=== PATIENT | male | born 1955 | race Caucasian/White ===

== ENCOUNTER 2017-01-13 13:42 | Emergency (ER) | payer OTHER ==
[~2017-01-13] VITALS: Ht 182.9 cm; Wt 72.5 kg
[~2017-01-13 13:42] MED LIST: ASAC800T PO; GABA100C4 PO; PANT40TA3 PO; PRED10 PO; PRED5TAB PO
[2017-01-13 13:53] VITALS: BP 119/75; PULSE 104; RESP 20; TEMP 97.8; O2SAT 95
[2017-01-13] MEDS ORDERED: SODIUM CHLOR 0.9% 1000 ML INJ 1,000 ML IV SCH (18:01)
--- NOTE | 2017-01-13 18:12 | PD ---
HPI Chief Complaint: Allergic/Adverse Reaction Time Seen by Provider: 18:01 Travel History International Travel<30 days: No Contact w/Intl Traveler<30days: No Traveled to known affect area: No History of Present Illness HPI 61-year-old male with history of ulcerative colitis, has been on long-term steroids for some time and recently has been having a taper of his steroids from 10 mg of prednisone daily to 5 mg in the last week and a half. He states that since his taper, he's been having more fatigue, loose stools, abdominal cramping pains which he states is intermittent in nature and can be up to a 5 out of 10, joint pains. He states that he thinks is related to the medication that is being cut down. He denies any fevers, vomiting, or any other symptoms. He has had similar symptoms in the past but they cut his steroids. Modifying Factors: None Associated Signs & Symptoms: Fatigue, diarrhea, abdominal cramps Risk Factors: Ulcerative colitis PFSH Past Medical History Cancer: No Cardiovascular Problems: No Diabetes: No Diminished Hearing: No Endocrine: No Gastrointestinal Disorders: Yes (COLITIS, HEMORRHOIDS) Genitourinary: No Hepatitis: No Hiatal Hernia: No Immune Disorder: Yes (COLITIS) Musculoskeletal: Yes (ARTHRITIS, BACK PROBLEMS) Neurologic: No Psychiatric: No Reproductive: No Respiratory: No Thyroid Disease: No Past Surgical History AICD: No Body Medical Devices: L ANKLE SCREWS Joint Replacement: No Pacemaker: No Social History Alcohol Use: No Tobacco Use: No Substance Use: No Allergies-Medications (Allergen,Severity, Reaction): Coded Allergies: Penicillin (Verified Adverse Reaction, Unknown, SEVERE NAUSEA, 01/13/17) Reported Meds & Prescriptions Reported Meds & Active Scripts Active Prednisone 5 Mg Tab 5 Mg PO DIRECTED Take 2 tabs (10mg) for 7 days Take 1 tab (5mg) for 7 days Take 1/2 tab (2.5mg) for 7 days Asacol HD (Mesalamine) 800 Mg Tab 1,600 Mg PO TID Swallow whole. Take on an empty stomach. Review of Systems Except as stated in HPI: all other systems reviewed are Neg Physical Exam Narrative GENERAL: Elderly white male patient currently not in acute distress. Awake and oriented 3. SKIN: Focused skin assessment warm/dry. HEAD: Atraumatic. Normocephalic. EYES: Pupils equal and round. No scleral icterus. No injection or drainage. ENT: No nasal bleeding or discharge. Mucous membranes pink and moist. NECK: Trachea midline. No JVD. CARDIOVASCULAR: Regular rate and rhythm. No murmur appreciated. RESPIRATORY: No accessory muscle use. Clear to auscultation. Breath sounds equal bilaterally. GASTROINTESTINAL: Abdomen soft, mild left lower quadrant tenderness without guarding or rebound, nondistended. Hepatic and splenic margins not palpable. MUSCULOSKELETAL: No obvious deformities. No clubbing. No cyanosis. No edema. NEUROLOGICAL: Awake and alert. No obvious cranial nerve deficits. Motor grossly within normal limits. Normal speech. PSYCHIATRIC: Appropriate mood and affect; insight and judgment normal. Data Data Last Documented VS Vital Signs Date Time Temp Pulse Resp B/P Pulse Ox O2 Delivery O2 Flow Rate FiO2 01/13/17 19:08 83 17 138/80 99 Room Air 01/13/17 13:53 97.8 Orders Complete Blood Count With Diff (01/13/17 18:01) Comprehensive Metabolic Panel (01/13/17 18:01) Lipase (01/13/17 18:01) Urinalysis - C+S If Indicated (01/13/17 18:01) Abdomen, Flat & Upright (01/13/17 ) Iv Access Insert/Monitor (01/13/17 18:01) Ecg Monitoring (01/13/17 18:01) Oximetry (01/13/17 18:01) Sodium Chlor 0.9% 1000 Ml Inj (Ns 1000 M (01/13/17 18:01) Sodium Chloride 0.9% Flush (Ns Flush) (01/13/17 18:15) Prednisone (Deltasone) (01/13/17 18:15) Labs Laboratory Tests Test 01/13/17 18:14 White Blood Count 15.3 TH/MM3 Red Blood Count 4.84 MIL/MM3 Hemoglobin 11.8 GM/DL Hematocrit 37.3 % Mean Corpuscular Volume 76.9 FL Mean Corpuscular Hemoglobin 24.4 PG Mean Corpuscular Hemoglobin 31.7 % Concent Red Cell Distribution Width 15.5 % Platelet Count 597 TH/MM3 Mean Platelet Volume 6.9 FL Neutrophils (%) (Auto) 73.7 % Lymphocytes (%) (Auto) 15.2 % Monocytes (%) (Auto) 9.6 % Eosinophils (%) (Auto) 0.7 % Basophils (%) (Auto) 0.8 % Neutrophils # (Auto) 11.2 TH/MM3 Lymphocytes # (Auto) 2.3 TH/MM3 Monocytes # (Auto) 1.5 TH/MM3 Eosinophils # (Auto) 0.1 TH/MM3 Basophils # (Auto) 0.1 TH/MM3 CBC Comment AUTO DIFF Sodium Level 137 MEQ/L Potassium Level 5.1 MEQ/L Chloride Level 100 MEQ/L Carbon Dioxide Level 29.0 MEQ/L Anion Gap 8 MEQ/L Blood Urea Nitrogen 8 MG/DL Creatinine 1.02 MG/DL Estimat Glomerular Filtration 74 ML/MIN Rate Random Glucose 87 MG/DL Calcium Level 9.3 MG/DL Total Bilirubin 0.4 MG/DL Aspartate Amino Transf 27 U/L (AST/SGOT) Alanine Aminotransferase 14 U/L (ALT/SGPT) Alkaline Phosphatase 73 U/L Total Protein 8.8 GM/DL Albumin 2.4 GM/DL Lipase 78 U/L MDM Medical Decision Making Medical Screen Exam Complete: Yes Emergency Medical Condition: Yes Medical Record Reviewed: Yes Interpretation(s) Laboratory Tests Test 01/13/17 18:14 White Blood Count 15.3 TH/MM3 (4.0-11.0) Hemoglobin 11.8 GM/DL (13.0-17.0) Hematocrit 37.3 % (39.0-51.0) Mean Corpuscular Volume 76.9 FL (80.0-100.0) Mean Corpuscular Hemoglobin 24.4 PG (27.0-34.0) Mean Corpuscular Hemoglobin 31.7 % Concent (32.0-36.0) Platelet Count 597 TH/MM3 (150-450) Mean Platelet Volume 6.9 FL (7.0-11.0) Neutrophils (%) (Auto) 73.7 % (16.0-70.0) Monocytes (%) (Auto) 9.6 % (0.0-8.0) Neutrophils # (Auto) 11.2 TH/MM3 (1.8-7.7) Monocytes # (Auto) 1.5 TH/MM3 (0-0.9) Estimat Glomerular Filtration 74 ML/MIN (>89) Rate Total Protein 8.8 GM/DL (6.4-8.2) Albumin 2.4 GM/DL (3.4-5.0) Differential Diagnosis Fatigue, abdominal cramping pains intermittently, diarrheaulcerative colitis exacerbation versus stereo withdrawal versus gastroenteritis versus dehydration versus metabolic issues Narrative Course Lab work and x-ray sent. Physician Communication Physician Communication Case is signed out to Dr. Arreola awaiting lab work and x-ray. Disposition based on workup. Diagnosis Primary Impression: Ulcerative colitis Condition: Stable Shaq Gann MD Jan 13, 2017 18:12
[2017-01-13] MEDS ORDERED: SODIUM CHLORIDE 0.9% FLUSH 10 ML FLUSH IV FLUSH PRN (18:15)
[2017-01-13] MEDS ORDERED: predniSONE 50 MG TAB PO ONE (18:15)
[2017-01-13 18:17] VITALS: O2SAT 96
[2017-01-13 18:43] LABS: AUTOMATED NEUTROPHIL # 11.2 TH/MM3 (1.8-7.7); BASOPHIL # 0.1 TH/MM3 (0-0.2); BASOPHIL % 0.8 % (0.0-2.0); EOSINOPHIL # 0.1 TH/MM3 (0-0.4); EOSINOPHIL % 0.7 % (0.0-4.0); HEMATOCRIT 37.3 % (39.0-51.0); LYMPH % 15.2 % (9.0-44.0); LYMPHOCYTE # 2.3 TH/MM3 (1.0-4.8); MEAN CELL VOLUME 76.9 FL (80.0-100.0); MEAN CORPUSCULAR HEMOGLOBIN 24.4 PG (27.0-34.0); MEAN CORPUSCULAR HGB CONC 31.7 % (32.0-36.0); MONO % 9.6 % (0.0-8.0); NEUT % 73.7 % (16.0-70.0); PLATELET COUNT 597 TH/MM3 (150-450); RED BLOOD COUNT 4.84 MIL/MM3 (4.50-5.90); RED CELL DISTRIBUTION WIDTH 15.5 % (11.6-17.2); WHITE BLOOD COUNT 15.3 TH/MM3 (4.0-11.0)
[2017-01-13 18:54] LABS: HEMO FLAGS AUTO DIFF
[2017-01-13 19:04] LABS: ANION GAP 8 MEQ/L (5-15); AST (GOT) 27 U/L (15-37); BLOOD UREA NITROGEN 8 MG/DL (7-18); CHLORIDE 100 MEQ/L (98-107); GLOMERULAR FILTRATION RATE 74 ML/MIN (>89); SODIUM (NA) 137 MEQ/L (136-145)
[2017-01-13 19:07] LABS: ALKALINE PHOSPHATASE 73 U/L (45-117); ALT (GPT) 14 U/L (12-78); POTASSIUM 5.1 MEQ/L (3.5-5.1); TOTAL BILIRUBIN ADULT 0.4 MG/DL (0.2-1.0)
[2017-01-13 19:08] VITALS: BP 138/80; PULSE 83; RESP 17; O2SAT 99
[2017-01-13 19:18] LABS: PLATELET ESTIMATE SMEAR HIGH (NORMAL); PLATELET MORPHOLOGY NORMAL (NORMAL)
[2017-01-13 19:19] LABS: SCAN/DIFF AUTO DIFF CONFIRMED
--- NOTE | 2017-01-13 19:37 | RADRPT ---
EXAM DATE/TIME: 01/13/2017 18:42 [facility] COMPARISON: No previous studies available for comparison. INDICATIONS : Abdominal pain. MEDICAL HISTORY : Ulcerative colitis. SURGICAL HISTORY : None. ENCOUNTER: Initial ACUITY: 1 day PAIN SCORE: 5/10 LOCATION: Bilateral abdomen. FINDINGS: Supine and upright views of the abdomen were performed. The abdominal bowel gas pattern is normal. No air fluid levels are seen. Moderate thoracolumbar scoliosis CONCLUSION: 1. No acute findings. Scoliosis. Armaan Fagan MD on January 13, 2017 at 19:34 Board Certified Radiologist. This report was verified electronically.
[2017-01-13 20:27] LABS: BACTERIA, URINE RARE /hpf; BLOOD, URINE SMALL (NEG); COMMENT (UR) CULTURE INDICATED; CULTURE IF INDICATED CULTURE INDICATED; GLUCOSE,URINE NEG (NEG); HYALINE CAST, URINE 1 /lpf (RARE); KETONE, URINE NEG (NEG); MUCUS URINE MOD /lpf (OCC); NITRITE,URINE NEG (NEG); PH, URINE 5.5 (5.0-8.5); SQUAMOUS EPITHELIAL CELL URINE <1 /hpf (0-5); URINE COLOR YELLOW (YELLW/STRAW)
[2017-01-13] MEDS ORDERED: PRED10 PO (20:38)
--- NOTE | 2017-01-13 20:38 | PD ---
Data Data Last Documented VS Vital Signs Date Time Temp Pulse Resp B/P Pulse Ox O2 Delivery O2 Flow Rate FiO2 01/13/17 19:08 83 17 138/80 99 Room Air 01/13/17 13:53 97.8 Orders Complete Blood Count With Diff (01/13/17 18:01) Comprehensive Metabolic Panel (01/13/17 18:01) Lipase (01/13/17 18:01) Urinalysis - C+S If Indicated (01/13/17 18:01) Abdomen, Flat & Upright (01/13/17 ) Iv Access Insert/Monitor (01/13/17 18:01) Ecg Monitoring (01/13/17 18:01) Oximetry (01/13/17 18:01) Sodium Chlor 0.9% 1000 Ml Inj (Ns 1000 M (01/13/17 18:01) Sodium Chloride 0.9% Flush (Ns Flush) (01/13/17 18:15) Prednisone (Deltasone) (01/13/17 18:15) Labs Laboratory Tests Test 01/13/17 18:14 White Blood Count 15.3 TH/MM3 Red Blood Count 4.84 MIL/MM3 Hemoglobin 11.8 GM/DL Hematocrit 37.3 % Mean Corpuscular Volume 76.9 FL Mean Corpuscular Hemoglobin 24.4 PG Mean Corpuscular Hemoglobin 31.7 % Concent Red Cell Distribution Width 15.5 % Platelet Count 597 TH/MM3 Mean Platelet Volume 6.9 FL Neutrophils (%) (Auto) 73.7 % Lymphocytes (%) (Auto) 15.2 % Monocytes (%) (Auto) 9.6 % Eosinophils (%) (Auto) 0.7 % Basophils (%) (Auto) 0.8 % Neutrophils # (Auto) 11.2 TH/MM3 Lymphocytes # (Auto) 2.3 TH/MM3 Monocytes # (Auto) 1.5 TH/MM3 Eosinophils # (Auto) 0.1 TH/MM3 Basophils # (Auto) 0.1 TH/MM3 CBC Comment AUTO DIFF Differential Comment AUTO DIFF CONFIRMED Platelet Estimate HIGH Platelet Morphology Comment NORMAL Red Cell Morphology Comment NORMAL Sodium Level 137 MEQ/L Potassium Level 5.1 MEQ/L Chloride Level 100 MEQ/L Carbon Dioxide Level 29.0 MEQ/L Anion Gap 8 MEQ/L Blood Urea Nitrogen 8 MG/DL Creatinine 1.02 MG/DL Estimat Glomerular Filtration 74 ML/MIN Rate Random Glucose 87 MG/DL Calcium Level 9.3 MG/DL Total Bilirubin 0.4 MG/DL Aspartate Amino Transf 27 U/L (AST/SGOT) Alanine Aminotransferase 14 U/L (ALT/SGPT) Alkaline Phosphatase 73 U/L Total Protein 8.8 GM/DL Albumin 2.4 GM/DL Lipase 78 U/L [facility] [place] Medical Record Reviewed: Yes Supervised Visit with FLORENCIO: No Narrative Course CBC & BMP Diagram 01/13/17 18:14 LFTs normal Lipase normal Please refer to outgoing provider's note. Pt is ready for discharge. Diagnosis Primary Impression: Ulcerative colitis Qualified Code: K51.919 - Ulcerative colitis with complication, unspecified location Referrals: Landon Fuentes MD 2 days Additional Instruction: You have a choice when it comes to health care, and we are glad that you chose [facility]. Hopefully, we have met your expectations on today's visit. You are welcome to return to [facility] at any time, as we are committed to meeting the health care needs of our community. Med/Other Pt SpecificInfo: Prescription(s) given Scripts Prednisone 10 Mg Tab10 Mg PO DAILY 7 Days Ref 0 Prov:Yang Arreola MD 01/13/17 Disposition: 01 DISCHARGE HOME Condition: Stable Yang Arreola MD Jan 13, 2017 20:38
[2017-01-13 20:58] VITALS: BP 130/80
[2017-01-15] MEDS ORDERED: IMUR50TA PO (09:40)
[2017-01-29] MEDS ORDERED: ERYTOIN10 LEFT EYE (12:03)
[2017-01-29] MEDS ORDERED: ASAC800T PO (12:04)
[2017-02-27] MEDS ORDERED: DICY20TA10 PO (11:02)
== END 2017-01-13 21:00 | disposition home or self-care (01) ==
LOC: NEPC 13:42
DX: K51.90 Ulcerative colitis, unspecified, without complications (principal); Z79.52 Long term (current) use of systemic steroids
CPT/HCPCS: 74020; 80053; 81001; 83690; 85025; 87086; 96360; 99284; J7030; J7512

== ENCOUNTER → 2017-01-23 | Outpatient (CLI) | payer OTHER ==
[~2017-01-23] MED LIST changes: +DICY20TA10 PO; +ERYTOIN10 LEFT EYE; -GABA100C4 PO; +IMUR50TA PO; -PANT40TA3 PO
[2017-01-23 15:06] LABS: AUTOMATED NEUTROPHIL # 12.4 TH/MM3 (1.8-7.7); BASOPHIL # 0.1 TH/MM3 (0-0.2); BASOPHIL % 0.8 % (0.0-2.0); EOSINOPHIL # 0.2 TH/MM3 (0-0.4); EOSINOPHIL % 1.4 % (0.0-4.0); HEMATOCRIT 34.8 % (39.0-51.0); LYMPH % 12.9 % (9.0-44.0); LYMPHOCYTE # 2.1 TH/MM3 (1.0-4.8); MEAN CELL VOLUME 75.8 FL (80.0-100.0); MEAN CORPUSCULAR HEMOGLOBIN 24.7 PG (27.0-34.0); MEAN CORPUSCULAR HGB CONC 32.5 % (32.0-36.0); MONO % 7.7 % (0.0-8.0); NEUT % 77.2 % (16.0-70.0); PLATELET COUNT 560 TH/MM3 (150-450); RED BLOOD COUNT 4.59 MIL/MM3 (4.50-5.90); RED CELL DISTRIBUTION WIDTH 15.6 % (11.6-17.2); WHITE BLOOD COUNT 16.1 TH/MM3 (4.0-11.0)
[2017-01-23 15:12] LABS: HEMO FLAGS AUTO DIFF
[2017-01-23 16:25] LABS: BANDS 13 % (0-6); BASOPHILS 1 % (0-2); EOSINOPHILS 1 % (0-4); NEUTROPHIL # MANUAL DIFF 12.7 TH/MM3 (1.8-7.7); PLATELET ESTIMATE SMEAR HIGH (NORMAL); PLATELET MORPHOLOGY NORMAL (NORMAL); POLYS (SEG NEUTROPHILS) 66 % (16-70); SCAN/DIFF FINAL DIFF MANUAL; WBC DIFF SAMPLE 100
== END ==
LOC: CLAB 14:47
PROVIDERS: ATTEND Family Medicine
DX: K51.90 Ulcerative colitis, unspecified, without complications (principal)
CPT/HCPCS: 36415; 85007; 85027

== ENCOUNTER → 2017-01-28 | Outpatient (CLI) | payer OTHER ==
[2017-01-28 14:25] LABS: AUTOMATED NEUTROPHIL # 10.6 TH/MM3 (1.8-7.7); BASOPHIL # 0.1 TH/MM3 (0-0.2); BASOPHIL % 0.8 % (0.0-2.0); EOSINOPHIL # 0.2 TH/MM3 (0-0.4); EOSINOPHIL % 1.8 % (0.0-4.0); HEMATOCRIT 32.1 % (39.0-51.0); LYMPH % 12.5 % (9.0-44.0); LYMPHOCYTE # 1.7 TH/MM3 (1.0-4.8); MEAN CELL VOLUME 77.6 FL (80.0-100.0); MEAN CORPUSCULAR HEMOGLOBIN 24.2 PG (27.0-34.0); MEAN CORPUSCULAR HGB CONC 31.2 % (32.0-36.0); MONO % 5.4 % (0.0-8.0); NEUT % 79.5 % (16.0-70.0); PLATELET COUNT 613 TH/MM3 (150-450); RED BLOOD COUNT 4.14 MIL/MM3 (4.50-5.90); RED CELL DISTRIBUTION WIDTH 15.6 % (11.6-17.2); WHITE BLOOD COUNT 13.4 TH/MM3 (4.0-11.0)
[2017-01-28 14:31] LABS: HEMO FLAGS AUTO DIFF
[2017-01-28 15:07] LABS: PLATELET ESTIMATE SMEAR HIGH (NORMAL); PLATELET MORPHOLOGY NORMAL (NORMAL)
[2017-01-28 15:08] LABS: SCAN/DIFF AUTO DIFF CONFIRMED
== END ==
LOC: CLAB 14:00
PROVIDERS: ATTEND Family Medicine
DX: K51.90 Ulcerative colitis, unspecified, without complications (principal)
CPT/HCPCS: 36415; 85025

== ENCOUNTER → 2017-02-05 | Outpatient (CLI) | payer OTHER ==
[~2017-02-05] MED LIST changes: -PRED10 PO; -PRED5TAB PO
[2017-02-05 15:25] LABS: AUTOMATED NEUTROPHIL # 6.7 TH/MM3 (1.8-7.7); BASOPHIL # 0.1 TH/MM3 (0-0.2); BASOPHIL % 0.7 % (0.0-2.0); EOSINOPHIL # 0.5 TH/MM3 (0-0.4); HEMATOCRIT 31.2 % (39.0-51.0); LYMPH % 16.3 % (9.0-44.0); LYMPHOCYTE # 1.5 TH/MM3 (1.0-4.8); MEAN CORPUSCULAR HEMOGLOBIN 24.8 PG (27.0-34.0); MEAN CORPUSCULAR HGB CONC 31.7 % (32.0-36.0); MONO % 6.2 % (0.0-8.0); NEUT % 71.8 % (16.0-70.0); PLATELET COUNT 693 TH/MM3 (150-450); RED BLOOD COUNT 3.99 MIL/MM3 (4.50-5.90); RED CELL DISTRIBUTION WIDTH 16.5 % (11.6-17.2); WHITE BLOOD COUNT 9.3 TH/MM3 (4.0-11.0)
[2017-02-05 15:26] LABS: HEMO FLAGS AUTO DIFF
[2017-02-05 15:59] LABS: OVALOCYTES 1+ (NORMAL); PLATELET ESTIMATE SMEAR HIGH (NORMAL); PLATELET MORPHOLOGY NORMAL (NORMAL); SCAN/DIFF AUTO DIFF CONFIRMED
== END ==
LOC: CLAB 14:36
PROVIDERS: ATTEND Nurse Practitioner Family
DX: K51.90 Ulcerative colitis, unspecified, without complications (principal)
CPT/HCPCS: 36415; 85025

== ENCOUNTER → 2017-02-05 | Outpatient (CLI) | payer OTHER ==
--- NOTE | 2017-02-05 17:45 | RADRPT ---
EXAM DATE/TIME: 02/05/2017 14:29 [facility] COMPARISON: No previous studies available for comparison. INDICATIONS : Has been hoarse and coughing up phlegm for one month, quit smoking 10 years ago, no thoracic surgery MEDICAL HISTORY : scoliosis SURGICAL HISTORY : None. ENCOUNTER: Initial ACUITY: 1 month PAIN SCORE: 0/10 LOCATION: Bilateral chest FINDINGS: PA and lateral views of the chest demonstrate the lungs to be symmetrically aerated without evidence of mass, infiltrate or effusion. Marked dextrorotoscoliosis of the dorsal spine with distortion of th e mediastinal contour. Heart size is normal. Osseous structures are otherwise intact. CONCLUSION: 1. Dextrorotoscoliosis of the dorsal spine. 2. No acute cardiopulmonary process. Efra Bradshaw MD on February 05, 2017 at 16:53 Board Certified Radiologist. This report was verified electronically.
== END ==
LOC: HRAD 14:14
PROVIDERS: ATTEND Nurse Practitioner Family
DX: R05 Cough (principal)
CPT/HCPCS: 71020

== ENCOUNTER → 2017-02-21 | Outpatient (CLI) | payer OTHER ==
[2017-02-21 14:33] LABS: AUTOMATED NEUTROPHIL # 8.5 TH/MM3 (1.8-7.7); BASOPHIL # 0.1 TH/MM3 (0-0.2); BASOPHIL % 0.9 % (0.0-2.0); EOSINOPHIL # 0.5 TH/MM3 (0-0.4); EOSINOPHIL % 4.3 % (0.0-4.0); HEMATOCRIT 32.6 % (39.0-51.0); LYMPH % 13.6 % (9.0-44.0); LYMPHOCYTE # 1.5 TH/MM3 (1.0-4.8); MEAN CELL VOLUME 78.9 FL (80.0-100.0); MEAN CORPUSCULAR HEMOGLOBIN 24.7 PG (27.0-34.0); MEAN CORPUSCULAR HGB CONC 31.4 % (32.0-36.0); MONO % 5.8 % (0.0-8.0); NEUT % 75.4 % (16.0-70.0); PLATELET COUNT 719 TH/MM3 (150-450); RED BLOOD COUNT 4.13 MIL/MM3 (4.50-5.90); RED CELL DISTRIBUTION WIDTH 20.4 % (11.6-17.2); WHITE BLOOD COUNT 11.2 TH/MM3 (4.0-11.0)
[2017-02-21 14:39] LABS: HEMO FLAGS AUTO DIFF
[2017-02-21 15:37] LABS: OVALOCYTES 1+ (NORMAL); PLATELET ESTIMATE SMEAR HIGH (NORMAL); PLATELET MORPHOLOGY NORMAL (NORMAL); SCAN/DIFF AUTO DIFF CONFIRMED
== END ==
LOC: CLAB 14:20
PROVIDERS: ATTEND Family Medicine
DX: K51.90 Ulcerative colitis, unspecified, without complications (principal)
CPT/HCPCS: 36415; 85025

== ENCOUNTER → 2017-03-25 | Outpatient (CLI) | payer OTHER ==
[~2017-03-25] MED LIST changes: -ERYTOIN10 LEFT EYE
[2017-03-25 13:40] LABS: AUTOMATED NEUTROPHIL # 6.7 TH/MM3 (1.8-7.7); BASOPHIL # 0.1 TH/MM3 (0-0.2); BASOPHIL % 0.9 % (0.0-2.0); EOSINOPHIL # 0.8 TH/MM3 (0-0.4); EOSINOPHIL % 8.6 % (0.0-4.0); HEMATOCRIT 34.8 % (39.0-51.0); HEMO FLAGS DIFF FINAL; LYMPH % 15.5 % (9.0-44.0); LYMPHOCYTE # 1.5 TH/MM3 (1.0-4.8); MEAN CELL VOLUME 80.7 FL (80.0-100.0); MEAN CORPUSCULAR HEMOGLOBIN 25.7 PG (27.0-34.0); MEAN CORPUSCULAR HGB CONC 31.8 % (32.0-36.0); MONO % 6.4 % (0.0-8.0); NEUT % 68.6 % (16.0-70.0); PLATELET COUNT 538 TH/MM3 (150-450); RED BLOOD COUNT 4.31 MIL/MM3 (4.50-5.90); WHITE BLOOD COUNT 9.8 TH/MM3 (4.0-11.0)
== END ==
LOC: CLAB 13:14
PROVIDERS: ATTEND Nurse Practitioner Family
DX: K51.90 Ulcerative colitis, unspecified, without complications (principal)
CPT/HCPCS: 36415; 85025

== ENCOUNTER → 2017-04-25 | Outpatient (CLI) | payer OTHER ==
[2017-04-25 11:01] LABS: AUTOMATED NEUTROPHIL # 6.9 TH/MM3 (1.8-7.7); BASOPHIL # 0.1 TH/MM3 (0-0.2); BASOPHIL % 0.5 % (0.0-2.0); EOSINOPHIL # 0.9 TH/MM3 (0-0.4); EOSINOPHIL % 9.2 % (0.0-4.0); HEMATOCRIT 33.7 % (39.0-51.0); HEMO FLAGS DIFF FINAL; LYMPH % 16.7 % (9.0-44.0); LYMPHOCYTE # 1.7 TH/MM3 (1.0-4.8); MEAN CORPUSCULAR HEMOGLOBIN 25.1 PG (27.0-34.0); MEAN CORPUSCULAR HGB CONC 31.8 % (32.0-36.0); MONO % 7.1 % (0.0-8.0); NEUT % 66.5 % (16.0-70.0); PLATELET COUNT 534 TH/MM3 (150-450); RED BLOOD COUNT 4.26 MIL/MM3 (4.50-5.90); RED CELL DISTRIBUTION WIDTH 17.2 % (11.6-17.2); WHITE BLOOD COUNT 10.3 TH/MM3 (4.0-11.0)
== END ==
LOC: CLAB 10:09
PROVIDERS: ATTEND Nurse Practitioner Family
DX: K51.90 Ulcerative colitis, unspecified, without complications (principal)
CPT/HCPCS: 36415; 85025

== ENCOUNTER 2017-05-22 23:43 | Emergency (ER) | payer OTHER ==
[2017-05-22 23:46] VITALS: BP 166/75; PULSE 114; RESP 18; TEMP 101.4; O2SAT 98
[2017-05-23 00:22] VITALS: BP 143/98; PULSE 102; RESP 18; TEMP 99.1; O2SAT 97
--- NOTE | 2017-05-23 00:42 | PD ---
HPI Chief Complaint: GI Complaint Time Seen by Provider: 00:42 Travel History International Travel<30 days: No Contact w/Intl Traveler<30days: No Traveled to known affect area: No History of Present Illness HPI The patient 61 years old. He has ulcerative colitis. He has been taking mesalamine and has had liquid diarrhea for the past few weeks. Recently he obtained a new prescription bottle and believes that the pills in the new bottle work differently than the prior pills even though it was the same shipping agent. For this reason he arrives to the ER in order to inform us of this change. He at the time of interview has no complaint. History Past Medical Histgory Tetanus Vaccination: Unknown Hx Cancer: No Social History Alcohol Use: No Tobacco Use: No Allergies-Medications (Allergen,Severity, Reaction): Coded Allergies: Penicillin (Verified Adverse Reaction, Unknown, SEVERE NAUSEA, 05/23/17) Reported Meds & Prescriptions Reported Meds & Active Scripts Active Dicyclomine (Dicyclomine HCl) 20 Mg Tab 20 Mg PO QID Asacol HD (Mesalamine) 800 Mg Tab 1,600 Mg PO TID Swallow whole. Take on an empty stomach. Imuran (Azathioprine) 50 Mg Tab 50 Mg PO BID Hazardous agent: use appropriate precautions for handling and disposal. Review of Systems General / Constitutional: No: Fever Physical Exam Narrative GENERAL: Well-nourished well-developed 61-year-old male no acute distress SKIN: Warm and dry. HEAD: Normocephalic. EYES: No scleral icterus. No injection or drainage. NECK: Supple, trachea midline. No JVD or lymphadenopathy. CARDIOVASCULAR: Regular rate and rhythm without murmurs, gallops, or rubs. RESPIRATORY: Breath sounds equal bilaterally. No accessory muscle use. GASTROINTESTINAL: Abdomen soft, non-tender, nondistended. MUSCULOSKELETAL: No cyanosis, or edema. BACK: Nontender without obvious deformity. No CVA tenderness. Data Data Last Documented VS Vital Signs Date Time Temp Pulse Resp B/P Pulse Ox O2 Delivery O2 Flow Rate FiO2 05/23/17 00:22 102 18 143/98 97 Room Air 05/22/17 23:46 101.4 repeat temp 99.1 in the exam room MDM Medical Screen Exam Complete: Yes Emergency Medical Condition: No Plan A medical screening exam was performed: At the time of evaluation the presenting medical condition was determined not to be of an emergent nature. The patient was given the option of receiving additional care, but declined. Patient was given options for additional community resources from which to obtain care. The Patient Has Been advised to seek medical attention for their presenting complaint. The patient has been advised to return to the ER at any time if an emergent condition develops. Please note a temperature of 101.4 was measured in triage. A repeat temperature in the exam room was 99.1, which was assumed to have been the first and only temperature measured for the visit, and since the patient had no complaint at that time and denied fever, he was offered a medical screen exam, which he elected to accept. He was called at 429AM 05/23/17, upon when reviewing the chart the elevated temp was observed for the first time, to discuss his elevated temperature and that he should return to the ER upon any sensation of fever, pain, n/v/d. He verbalized understanding. He has blood work planned for tomorrow along with a visit to Dr Cloud . Primary Impression: Encounter for medical screening examination Additional Instructions: You have a choice when it comes to health care, and we are glad that you chose [facility]. Hopefully, we have met your expectations on today's visit. You are welcome to return to [facility] at any time, as we are committed to meeting the health care needs of our community. Med/Other Pt SpecificInfo: No Change to Meds Disposition: 01 DISCHARGE HOME Condition: Yang Antoine MD May 23, 2017 00:42
== END 2017-05-23 00:53 | disposition home or self-care (01) ==
LOC: NEPE 23:43
DX: K51.90 Ulcerative colitis, unspecified, without complications (principal)
CPT/HCPCS: 99281

== ENCOUNTER → 2017-05-23 | Outpatient (CLI) | payer OTHER ==
[2017-05-23 13:29] LABS: AUTOMATED NEUTROPHIL # 4.3 TH/MM3 (1.8-7.7); BASOPHIL % 0.4 % (0.0-2.0); EOSINOPHIL % 13.5 % (0.0-4.0); HEMATOCRIT 32.6 % (39.0-51.0); HEMO FLAGS DIFF FINAL; LYMPH % 21.2 % (9.0-44.0); LYMPHOCYTE # 1.6 TH/MM3 (1.0-4.8); MEAN CELL VOLUME 80.1 FL (80.0-100.0); MEAN CORPUSCULAR HEMOGLOBIN 25.5 PG (27.0-34.0); MEAN CORPUSCULAR HGB CONC 31.8 % (32.0-36.0); MONO % 8.8 % (0.0-8.0); NEUT % 56.1 % (16.0-70.0); PLATELET COUNT 574 TH/MM3 (150-450); RED BLOOD COUNT 4.07 MIL/MM3 (4.50-5.90); RED CELL DISTRIBUTION WIDTH 15.7 % (11.6-17.2); WHITE BLOOD COUNT 7.6 TH/MM3 (4.0-11.0)
== END ==
LOC: CLAB 13:02
PROVIDERS: ATTEND Family Medicine
DX: K51.90 Ulcerative colitis, unspecified, without complications (principal)
CPT/HCPCS: 36415; 85025

== ENCOUNTER → 2017-07-02 | Outpatient (CLI) | payer OTHER ==
[2017-07-02 10:20] LABS: AUTOMATED NEUTROPHIL # 4.9 TH/MM3 (1.8-7.7); BASOPHIL # 0.1 TH/MM3 (0-0.2); BASOPHIL % 0.8 % (0.0-2.0); EOSINOPHIL # 0.9 TH/MM3 (0-0.4); EOSINOPHIL % 11.2 % (0.0-4.0); HEMATOCRIT 27.3 % (39.0-51.0); HEMO FLAGS DIFF FINAL; LYMPH % 18.4 % (9.0-44.0); LYMPHOCYTE # 1.4 TH/MM3 (1.0-4.8); MEAN CELL VOLUME 80.6 FL (80.0-100.0); MEAN CORPUSCULAR HGB CONC 32.3 % (32.0-36.0); MONO % 5.9 % (0.0-8.0); NEUT % 63.7 % (16.0-70.0); PLATELET COUNT 670 TH/MM3 (150-450); RED BLOOD COUNT 3.39 MIL/MM3 (4.50-5.90); RED CELL DISTRIBUTION WIDTH 18.4 % (11.6-17.2); WHITE BLOOD COUNT 7.6 TH/MM3 (4.0-11.0)
== END ==
LOC: CLAB 09:39
PROVIDERS: ATTEND Family Medicine
DX: K51.90 Ulcerative colitis, unspecified, without complications (principal)
CPT/HCPCS: 36415; 85025

== ENCOUNTER → 2017-07-23 | Outpatient (CLI) | payer OTHER ==
[2017-07-23 14:40] LABS: AUTOMATED NEUTROPHIL # 6.5 TH/MM3 (1.8-7.7); BASOPHIL # 0.1 TH/MM3 (0-0.2); BASOPHIL % 1.1 % (0.0-2.0); EOSINOPHIL # 0.7 TH/MM3 (0-0.4); EOSINOPHIL % 7.6 % (0.0-4.0); HEMATOCRIT 30.1 % (39.0-51.0); HEMO FLAGS DIFF FINAL; LYMPH % 14.6 % (9.0-44.0); LYMPHOCYTE # 1.3 TH/MM3 (1.0-4.8); MEAN CELL VOLUME 83.6 FL (80.0-100.0); MEAN CORPUSCULAR HEMOGLOBIN 26.8 PG (27.0-34.0); MONO % 4.8 % (0.0-8.0); NEUT % 71.9 % (16.0-70.0); PLATELET COUNT 559 TH/MM3 (150-450); RED CELL DISTRIBUTION WIDTH 20.4 % (11.6-17.2)
== END ==
LOC: CLAB 14:15
PROVIDERS: ATTEND Family Medicine
DX: K51.90 Ulcerative colitis, unspecified, without complications (principal)
CPT/HCPCS: 36415; 85025